=== PATIENT | male | born 1940 ===

== ENCOUNTER 2017-05-03 07:48 | Day surgery (SDC) | payer OTHER ==
[2017-04-30 16:07] VITALS: BMI 23.5
[2017-05-03 08:18] LABS: BASOPHIL 0.3 % (0-2.0); EOSINOPHIL 0.7 % (0-4.5); MCH 26.9 pg (25.7-33.7); MEAN CELL VOLUME 84.2 fl (80-96); MEAN PLT VOLUME 6.9 fl (7.5-11.1); NEUTROPHILS 70.4 % (42.8-82.8); PLATELET COUNT 453 K/MM3 (134-434); RDW 16.7 % (11.9-15.9); WHITE BLOOD COUNT 15.1 K/mm3 (4.0-10.0)
[2017-05-03 08:23] VITALS: TEMP 97.9
[2017-05-03 08:49] LABS: INR 1.3 (0.82-1.09); PROTHROMBIN TIME (PATIENT) 14.7 SEC (9.98-11.88)
[2017-05-03 17:26] VITALS: BP 120/70; PULSE 90
--- NOTE | 2017-05-05 15:51 | PATH ---
Surgical Pathology Report Patient Name: JU RICHARDS [facility]. Rec. #: [id number] /Age/Gender: 1940 (Age: 76) / M Account: [id number] Location: Taken: 05/03/2017 Received: 05/03/2017 Reported: 05/05/2017 Physicians: Reid Felix M.D. Hunter Starr M.D. Specimen(s) Received LIVER BIOPSY Clinical History 76-year-old male with transverse colon mass and multiple liver lesions Final Diagnosis LIVer, Biopsy: Adenocarcinoma, see comment. Comment: Scant evidence. The biopsy shows few atypical glands in a fibrotic background with focal mucin and necrosis. No liver parenchyma is identified. Immunohistochemical stains performed and interpreted at [facility] show the tumor is positive for CK20, while negative for CK7. Additional immunohistochemical stain performed at [place], [place] ([id number]) and interpreted at [facility] show CDX2 is positive. The above immunophenotype is consistent with colorectal origin. History of transverse colon mass and multiple liver lesions are noted. Office of Dr. Starr informed that significant findings will be faxed ([place]). Electronically Signed Lauren Jones M.D. Gross Description Received in formalin labeled "liver biopsy," is a 0.3 x 0.3 x 0.1 cm aggregate of estrella soft tissue fragments. The formalin is filtered and the specimen is entirely submitted in one cassette. 05/03/201705/03/2017
== END 2017-05-03 17:00 | disposition home or self-care (01) ==
LOC: JRADIR 07:48
PROVIDERS: ATTEND Internal Medicine Gastroenterology
PROC: BF45ZZZ Ultrasonography of Liver (ICD-10-PCS; principal; 2017-05-03)
PROC: 0FB03ZX Excision of Liver, Percutaneous Approach, Diagnostic (ICD-10-PCS; 2017-05-03)
DX: C22.7 Other specified carcinomas of liver (principal)
CPT/HCPCS: 36415; 47000; 76705-TC; 85025; 85610; 87899; 88305-TC; 88341-TC; 88342-TC